=== PATIENT | female | born 1995 | race Caucasian/White ===

== ENCOUNTER 2021-09-23 18:02 | Outpatient (CLI) | payer OTHER ==
[~2021-09-23] VITALS: Ht 162.6 cm; Wt 70.5 kg
[2021-09-23 18:30] VITALS: BP 117/65; PULSE 70; TEMP 97.9
[2021-09-23 19:00] VITALS: PULSE 78
--- NOTE | 2021-09-23 19:08 | NUR ---
PATIENT ARRIVED ON THE UNIT WITH SPOUSE WITH A COMPLAIT OF CONTRACTIONS Q3-5MINS APART. @1830 RN COMPLETED A SVE /3. @183 DR. HEATH CALLED RN FOR AN UPDATE. MD WAS MADE AWARE OF PT STATUS SVE1/-3 CORY Q6-7MINS APART. STATED TO EXAMINE PT IN AN HOUR AND IF NO CHANGE PT CAN RETURN HOME TO TAKE TYLENOL AND BENADRYL.
[2021-09-23 19:30] VITALS: BP 122/65; PULSE 65
--- NOTE | 2021-09-23 19:40 | NUR ---
@1835 DR. HEATH NOTIFIED REGARDING PT. SVE /-3 NO CHANGE TO HER CERVIX WITH SCANT BLOODY SHOW. COMTRACTIONS DURING PALPATIONS WERE MILD. PER STRIP CORY Q5-6 AND SOMETIME Q3-5. SAID ITS OKAY FOR PT TO RETURN HOME UNTIL CONTRACTIONS ARE GAVIN AND CLOSE TOGETHER.
--- NOTE | 2021-09-23 19:57 | NUR ---
PATIENT IN STABLE CONDITION. PT WAS DARY DISCHARGE INFO AND ALL QUESTIONS HAVE BEEN ANSWERED. PT AND SPOUSE OBSERVED AMBULATING OFF THE UNIT WITH A STEADY GATE.
== END 2021-09-23 19:57 ==
LOC: LDR 18:02 → LDRO 18:02
DX: O62.9 Abnormality of forces of labor, unspecified (principal); Z3A.40 40 weeks gestation of pregnancy
CPT/HCPCS: OP

== ENCOUNTER 2021-09-24 00:14 | Inpatient (IN) | payer OTHER ==
[2021-09-24] VITALS (24 sets, daily range): BP systolic 104–128; BP diastolic 53–71; PULSE 68–101; TEMP 97.9–98.6
[~2021-09-24] VITALS: Ht 162.6 cm; Wt 72.7 kg
--- NOTE | 2021-09-24 00:30 | NUR ---
PT PRESENTS TO L&D WITH C/O UC'S GETTING STRONGER AND CLOSER TOGETHER. MONITORS PLACED ON PT. FHR 155, MOD VARIBILTY, EARLY AND VARIBLE DECELS NOTED. DR HEATH CALLED IN, SHE WAS GIVEN INFO ON PT AND FHR BASELINE, VARIBLE AND EARLY DECELS. SHE IS AWARE OF THEM AND IS MONITORING THEM FROM HOME. PT TO BE ADMITTED AND CONTINUE TO WATCH STRIP.
[2021-09-24 01:30] LABS: BASO % 0.2 % (0.0-2.0); EOS % 0.1 % (0.0-4.0); GRAN # 8.3 K/mm3 (1.4-6.5); GRAN % 84.9 % (42.2-75.2); HEMATOCRIT 38.4 % (37.0-47.0); HEMOGLOBIN 13.8 g/dl (12.5-16.0); LYMPH # 0.9 K/mm3 (1.2-3.4); LYMPH % 9.6 % (20.0-51.0); MEAN CELL VOLUME 88 fl (80.0-100.0); MEAN CORPUSCULAR HEMOGLOBIN 32 pg (27-31); MEAN CORPUSCULAR HGB CONC 36 g/dl (33.0-37.0); MONO # 0.5 K/mm3 (0.1-0.6); MONO % 4.9 % (1.7-9.3); PLATELET COUNT 136 K/mm3 (130-400); RED BLOOD COUNT 4.36 M/mm3 (4.10-5.30); REDCELL DISTRIBUTION WIDTH-CV 12.6 % (11.5-14.5)
--- NOTE | 2021-09-24 02:00 | NUR ---
PT UP OUT OF BED, AMB TO BR TO VOID.
--- NOTE | 2021-09-24 03:55 | NUR ---
DR HEATH NOTIFIED OF FHR BASELINE AND DECELS. ORDERS NOTED TO TALK TO PT ABOUT GETTING AN EPIDURAL JUST INCASE WE NEEDED TO DO A C/S. PT STATES I WAS ALREADY THINKING ABOUT GETTING THE EPIDURAL SO YES I AM READY FOR IT. SHE HAD TALKED TO HER ABOUT IT AND HE AGREES SHE CAN GET IT.
--- NOTE | 2021-09-24 05:32 | NUR ---
ANAHY BUTLER HOMEBIRTH MIDWIFE HERE TO REDOSE PT'S EPIDURAL. PT IS STILL FEELING THE UC'S ON HER LEFT SIDE.
--- NOTE | 2021-09-24 05:35 | NUR ---
PROLONGED LATE DECEL INTO THE 70'S. REPOSITIONED INTO RIGHT LATERAL, LEFT TILT, SVE OF 9/100/+1, LEFT LATERAL. IVF BOLUS STARTED, O2 ON AT 1L PER FACE MASK. BP LOW AT 100/54. EPHEDRINE 10MG GIVEN IV.
--- NOTE | 2021-09-24 06:20 | NUR ---
REPORT GIVEN TO TANG ZAYAS FOR DAY SHIFT.
--- NOTE | 2021-09-24 06:56 | NUR ---
PT SITTING ON THE SIDE OF THE BED SO SHE CAN GO TO THE BR. ASSISTED PT TO BR.
--- NOTE | 2021-09-24 08:13 | NUR ---
0710: SVE COMPLETE/+2 AT THIS TIME. ROOM PREPARED FOR DELIVERY, PHYSICIAN NOTIFIED. ALL APPROPRIATE STAFF NOTIFIED. 0730: STRONG PUSHING EFFORTS, MOVES VERTEX WELL. NOTIFIED THAT WE ARE READY FOR HER AT THE BEDSIDE FOR DELIVERY. 0813: OF VIABLE FEMALE AT THIS TIME PER . INFANT PLACED ON MATERNAL ABDOMEN, STRONG CRY NOTED. CORD CLAMPED X2 AND CUT BY FOB. CARE OF INFANT ASSUMED BY CHANA FARAH. 0817: OF PLACENTA PER . PITOCIN BOLUS INFUSING PER PROTOCOL. BEGINA REPAIR OF 2ND DEGREE LACERATION. VITAL SIGNS STABLE. LOCHIA MODERATE, WITH NO CLOTS NOTED PRIOR TO REPAIR. FUNDUS FIRM AT UMBILICUS WITH MASSAGE.
--- NOTE | 2021-09-24 13:30 | NUR ---
PT SITTING ON EDGE OF BED IN PREPARATION FOR EPIDURAL PLACEMENT. DIFFICULTY TRACING EFM/TOCO DUE TO MATERNAL POSITIONING. ALL CONSENTS SIGNED AND EXPLAINED IN FULL VIA PROFESSIONAL TRANSLATION SERVICE, ANAHY BUTLER CRNA REVIEWS EPIDURAL PROCEDURE AND RISKS IN FULL VIA PROFESSIONAL TRANSLATION SERVICE. PT AND FOB DENY FURTHER QUESTIONS OR CONCERNS. 1342: TEST DOSE PER ANAHY BUTLER CRNA. PT TOLERATED PROCEDURE WELL.
--- NOTE | 2021-09-24 13:45 | NUR ---
EARL REICH RN ASSUMES CARE OF THIS PT.
[2021-09-25 07:45] VITALS: BP 99/61; PULSE 64; TEMP 97.4
[2021-09-25] MEDS ORDERED: MOTRIN 800800 MG/TAB PO (12:20)
== END 2021-09-25 13:30 | disposition home or self-care (01) | DRG 807 ==
LOC: LDRO 00:14 → OB 01:04 → LDR 01:04 → OB 08:13
PROVIDERS: Obstetrics & Gynecology; ADMIT Obstetrics & Gynecology
PROC: 10E0XZZ Delivery of Products of Conception, External Approach (ICD-10-PCS; principal; 2021-09-24)
PROC: 0KQM0ZZ Repair Perineum Muscle, Open Approach (ICD-10-PCS; 2021-09-24)
DX: O48.0 Post-term pregnancy (principal); Z37.0 Single live birth; O26.53 Maternal hypotension syndrome, third trimester; O70.1 Second degree perineal laceration during delivery; Z3A.40 40 weeks gestation of pregnancy
CPT/HCPCS: J2590; J7120